=== PATIENT | female | born 1985 | race Caucasian/White ===

== ENCOUNTER 2016-08-05 05:10 | Emergency (ER) | payer OTHER ==
[~2016-08-05] VITALS: Ht 162.6 cm; Wt 61.2 kg
[2016-08-05 05:13] VITALS: BP 152/102
--- NOTE | 2016-08-05 05:16 | NUR ---
FLU LIKE SYMPTOMS X 2 DAYS, PRODUCTIVE COUGH, SORE THROAT 1/10 PAIN, FEVER, AND GENERAL WEAKNESS, NKA
--- NOTE | 2016-08-05 05:18 | NUR ---
Dr. Coronado evaluating patient at bedside.
[2016-08-05] MEDS ORDERED: ALBUTEROL SULFATE/IPRATROPIU 3 ML SOL IH ONE (05:20)
--- NOTE | 2016-08-05 05:25 | NUR ---
Respiratory Therapist at bedside for respiratory intervention. Patient tolerated .
--- NOTE | 2016-08-05 05:36 | NUR ---
Patient discharged with v/s stable. Written and verbal after care instructions given and explained. Patient alert, oriented and verbalized understanding of instructions. Ambulatory with steady gait. All questions addressed prior to discharge. ID band removed. Patient advised to follow up with PMD. Rx of ALBUTEROL INHALER, ZPACK, GUAIATUSSIN AC, PREDNISONE 50MG given. Patient educated on indication of medication including possible reaction and side effects. Opportunity to ask questions provided and answered.
[2016-08-05 05:37] VITALS: BP 142/91
== END 2016-08-05 05:36 | disposition home or self-care (01) ==
LOC: MED 05:10
DX: J20.9 Acute bronchitis, unspecified (principal)
CPT/HCPCS: 94640; 99283; J7620

== ENCOUNTER 2016-09-01 11:57 | Emergency (ER) | payer OTHER ==
[~2016-09-01] VITALS: Ht 162.6 cm; Wt 58.1 kg
[2016-09-01 12:06] VITALS: BP 93/68
--- NOTE | 2016-09-01 12:15 | NUR ---
Patient wheelchair assisted to bed 3.
--- NOTE | 2016-09-01 12:20 | NUR ---
30/F BIB BOYFRIEND c/o witnessed tonic clonic seizure last 2 mins;hx herniated disc c3,5,6; anxiety, thyroid;rx ativan, synthroid, norco. SKIN IS PINK/WARM/DRY; AAOX4 WITH EVEN AND STEADY GAIT; LUNGS CLEAR BL; HR EVEN AND REGULAR; PT DENIES ANY FEVER, CP, SOB, OR COUGH AT THIS TIME; PATIENT STATES PAIN OF 9/10 AT THIS TIME; VSS; PATIENT POSITIONED FOR COMFORT; HOB ELEVATED; BEDRAILS UP X2; BED DOWN. ER MD MADE AWARE OF PT STATUS.
--- NOTE | 2016-09-01 12:20 | NUR ---
PT REFUSES TO GIVE URINE . MD FLAKITO WILD NOTIFIED. AWARE
[2016-09-01] MEDS ORDERED: MORPHINE SULFATE 4 MG/ML SYR IVP ONE (12:50)
[2016-09-01] MEDS ORDERED: MORPHINE SULFATE 10 MG/ML SYR IM ONE (13:30)
[2016-09-01] MEDS ORDERED: HYDROmorphone 1 MG/ML AMP IVP ONE (13:55)
[2016-09-01] MEDS ORDERED: KETAMINE 500 MG/5 ML VIAL IVP ONE ×2 (14:05)
--- NOTE | 2016-09-01 14:35 | NUR ---
DR. GARCIA AT BEDSIDE FOR CLOSED REDUCTION OF BILATERAL SHOULDERS WITH CONSCIOUS SEDATION SEE FLOW SHEET FOR DETAILS. PATIENT TOLERATED WELL. AWAKE AND ALERT POST PROCEDURE.
[2016-09-01] MEDS ORDERED: NACL 0.9% 1,000 ML IV ONE ×2 (14:50→15:25)
[2016-09-01] MEDS ORDERED: ONDANSETRON 4 MG/2 ML VIAL IVP ONE (15:45)
[2016-09-01] MEDS ORDERED: PIPERACILLIN/TAZOBACTAM 3.375 GM in DEXTROSE 5% 50 ML IV ONE (15:45)
[2016-09-01] MEDS ORDERED: PIPERACILLIN/TAZOBACTAM 3.375 GM VIAL IV ONE (15:50)
--- NOTE | 2016-09-01 16:00 | NUR ---
Patient appears to be resting comfortably in bed. Vital Signs within normal limits. Respirations even and unlabored.WILL CONTINUE TO MONITOR
[2016-09-01] MEDS ORDERED: levETIRAcetam 1,000 MG in NACL 0.9% 100 ML IV ONE (17:19)
--- NOTE | 2016-09-01 18:40 | NUR ---
IV removed, catheter intact and site benign. Applied folded 4x4 gauze and tape to stop bleeding.
[2016-09-01 18:44] VITALS: BP 122/67
--- NOTE | 2016-09-01 18:44 | NUR ---
Patient discharged with v/s stable. Written and verbal after care instructions given and explained. Patient alert, oriented and verbalized understanding of instructions. Ambulatory with steady gait. All questions addressed prior to discharge. ID band removed. Patient advised to follow up with PMD. Rx of FLEXERIL, NORCO ,IBUPROFEN &KEPPRA given. Patient educated on indication of medication including possible reaction and side effects. Opportunity to ask questions provided and answered.
== END 2016-09-01 18:44 | disposition home or self-care (01) ==
LOC: MED 11:57
DX: S43.085A Other dislocation of left shoulder joint, initial encounter (principal); S43.084A Other dislocation of right shoulder joint, initial encounter; R56.9 Unspecified convulsions; F41.9 Anxiety disorder, unspecified; W06.XXXA Fall from bed, initial encounter; Y93.89 Activity, other specified; Y92.89 Other specified places as the place of occurrence of the external cause; Y99.8 Other external cause status
CPT/HCPCS: 23650; 36415; 70450; 71010; 73030; 80053; 82550; 83605; 84484; 84702; 85025; 96361; 96365; 96367; 96375; 99285; J1170; J1953; J2270; J2405; J2543; J7030; J7060; Q0092

== ENCOUNTER 2016-09-30 20:48 | Emergency (ER) | payer OTHER ==
[~2016-09-30] VITALS: Ht 162.6 cm; Wt 59.0 kg
[2016-09-30 21:00] VITALS: BP 107/76
--- NOTE | 2016-09-30 21:40 | NUR ---
pt bib self C/O LEFT ARM, SHOULDER AND NECK FOR 2 WEEKS, PSYCHOLOGICAL TESTS [employer] EVAL
--- NOTE | 2016-09-30 22:02 | NUR ---
Patient discharged with v/s stable. Written and verbal after care instructions given and explained. Patient alert, oriented and verbalized understanding of instructions. Ambulatory with steady gait. All questions addressed prior to discharge. ID band removed. Patient advised to follow up with PMD. Rx of naprosyn 500mg given. Patient educated on indication of medication including possible reaction and side effects. Opportunity to ask questions provided and answered.
--- NOTE | 2016-09-30 22:03 | NUR ---
PT DISCHARGE BY N/P. ALL INFO GIVEN BY [facility] N/P
== END 2016-09-30 22:02 | disposition home or self-care (01) ==
LOC: MED 20:48
DX: M50.21 Other cervical disc displacement, high cervical region (principal); M50.223 Other cervical disc displacement at C6-C7 level; M50.221 Other cervical disc displacement at C4-C5 level
CPT/HCPCS: 99283